=== PATIENT | male | born 1960 | race African-American/Black ===

== ENCOUNTER 2022-05-27 11:29 | Emergency (ER) | payer OTHER, BC ==
[~2022-05-27] VITALS: Ht 167.6 cm; Wt 142.0 kg
[2022-05-27 12:11] LABS: BASO # 0.1 10*3/uL (0.0-0.1); EOS # 0.1 10*3/uL (0.0-0.4); HEMATOCRIT 42.8 % (42.0-52.0); LYMPH # 0.8 10*3/uL (1.3-4.4); LYMPH % 12.3 % (27.0-41.0); MEAN CELL VOLUME 85.4 fl (80.0-94.0); MEAN CORPUSCULAR HGB 27.7 pg (27.0-31.0); MEAN CORPUSCULAR HGB CONC 32.5 g/dl (33.0-37.0); MEAN PLATELET VOLUME 9.3 fl (9.6-12.3); MONO # 0.5 10*3/uL (0.1-1.0); MONO % 7.4 % (3.0-9.0); NEUT # 4.8 10*3/uL (2.3-7.9); NEUT % 77.8 % (47.0-73.0); PLATELET COUNT AUTOMATED 252 10*3/uL (130-400); RED BLOOD COUNT 5.01 10*6/uL (4.50-5.90); RED CELL DISTRI WIDTH 14.7 % (0-14.5); WHITE BLOOD COUNT 6.1 10*3/uL (4.8-10.8)
[2022-05-27 12:27] LABS: ALKALINE PHOSPHATASE 108 U/L (46-116); BUN 9 mg/dl (9-23); CHLORIDE 99 mmol/L (98-107); POTASSIUM 4.7 mmol/L (3.4-5.1); SGPT/ALT 14 U/L (10-49); TOTAL PROTEIN 7.8 gm/dL (6.0-8.0)
[2022-05-27] MEDS ORDERED: PREDNISONE10 MG PO (13:40)
[2022-05-27] MEDS ORDERED: ZITHROMAX250 MG PO (13:40)
[2022-05-27] MEDS ORDERED: PROVENTIL HFA6.7 GM INH (13:40)
[2022-05-27] MEDS ORDERED: OMNICEF300 MG PO (13:40)
== END 2022-05-27 13:50 | disposition home or self-care (01) ==
LOC: ED 11:29
PROVIDERS: Student in an Organized Health Care Education/Training Program
DX: J18.9 Pneumonia, unspecified organism (principal); J45.909 Unspecified asthma, uncomplicated; F17.200 Nicotine dependence, unspecified, uncomplicated; Z88.6 Allergy status to analgesic agent